=== PATIENT | female | born 1995 | race Hispanic/Latino ===

== ENCOUNTER 2018-03-24 03:45 | Emergency (ER) | payer OTHER, SELFPAY ==
--- NOTE | 2018-03-24 09:58 | RAD ---
PORTABLE CHEST: Date: 03/24/18 HISTORY: Cough. FINDINGS: Lungs are clear. Heart and mediastinum unremarkable. IMPRESSION: No acute process. POS: [facility]
--- NOTE | 2018-03-24 11:54 | EKG ---
Test Reason : Blood Pressure : / mmHG Vent. Rate : 090 BPM Atrial Rate : 090 BPM P-R Int : 154 ms QRS Dur : 080 ms QT Int : 356 ms P-R-T Axes : 027 029 003 degrees QTc Int : 435 ms Normal sinus rhythm Normal ECG T wave inversion III Confirmed by REYNA MEADE DO ([id number]), editor producer JAYSON MORRIS ([id number]) on 03/24/2018 11:53:56 AM Referred By: Confirmed By:REYNA MEADE DO
== END 2018-03-24 04:44 | disposition home or self-care (01) ==
LOC: ERS 03:45
DX: J06.9 Acute upper respiratory infection, unspecified (principal); F90.9 Attention-deficit hyperactivity disorder, unspecified type; F32.9 Major depressive disorder, single episode, unspecified
CPT/HCPCS: 71045; 93005

== ENCOUNTER 2018-04-26 21:35 | Emergency (ER) | payer OTHER, SELFPAY | END 2018-04-26 22:04 | disposition home or self-care (01) | LOC: ERS 21:35 | DX: H00.015 Hordeolum externum left lower eyelid (principal); F90.9 Attention-deficit hyperactivity disorder, unspecified type; F32.9 Major depressive disorder, single episode, unspecified | CPT/HCPCS: 99283 ==

== ENCOUNTER 2021-12-21 07:33 | Emergency (ER) | payer OTHER, SELFPAY | END 2021-12-21 10:38 | disposition home or self-care (01) | LOC: ERS 07:33 | DX: J06.9 Acute upper respiratory infection, unspecified (principal); Z20.822 Contact with and (suspected) exposure to COVID-19 | CPT/HCPCS: 99283; U0003; U0005 ==

== ENCOUNTER 2022-02-19 20:04 | Emergency (ER) | payer OTHER ==
[2022-02-19 20:26] LABS: Bacteria/HPF 2+ HPF (None Seen); Bilirubin Negative (Negative); Blood, Urine Trace (Negative); Clarity Turbid (Clear); Glucose, Urine (Dipstick) Normal (Negative); Ketone, Urine Negative (Negative); Leukocyte 500 Leu/uL (Negative); Nitrite Negative (Negative); Protein, Urine (Dipstick) 10 mg/dL (Neg-Trace); RBC/HPF 0-3 HPF (0-3); Specific Gravity, Urine 1.022 (1.002-1.036); Urobilinogen Normal mg/dL (Less than 2); WBC/HPF 21-50 HPF (0-3); pH, Urine 6.5 (5.0-9.0)
[2022-02-19 20:27] LABS: Pregnancy Test - Urine (BHCG) Negative (Negative); Pregu Control Background? CLEAR/WHITE (CLR/WHITE); Pregu Control Bar Appear? YES (CONTROL BAR); Specific Gravity 1.022 (1.002-1.036)
[2022-02-19 20:55] LABS: Hemoglobin 8.1 g/dL (12.0-16.0); Mean Corpuscular HGB CONC 27.3 g/dL (32.0-36.0); Mean Corpuscular Volume 62.4 fL (78.0-98.0); RBC Distribution Width 17.5 % (11.5-14.5); Red Blood Cell (RBC) Count 4.76 mill/uL (4.20-5.40); White Blood Cell (WBC) Count 8.3 thou/uL (4.8-10.8)
[2022-02-19 21:04] LABS: ALT (SGPT) 51 U/L (8-55); AST (SGOT) 24 U/L (5-34); Albumin 4.1 g/dL (3.5-5.0); Alkaline Phosphatase 88 U/L (40-110); Anion Gap 11 mmol/L (10-20); BUN (Urea Nitrogen) 11 mg/dL (7.0-18.7); Bilirubin, Total 0.3 mg/dL (0.2-1.2); Calc. Creatinine Clearance 0 mL/min (70-130); Calcium 9.7 mg/dL (7.8-10.44); Carbon Dioxide 27 mmol/L (22-29); Chloride 105 mmol/L (98-107); Estimated GFR 126; Globulin 2.8 g/dL (2.4-3.5); Glucose 87 mg/dL (70-105); Lipase 21 U/L (8-78); Potassium 3.9 mmol/L (3.5-5.1); Protein, Total 6.9 g/dL (6.0-8.3); Sodium 139 mmol/L (136-145)
[2022-02-19 21:35] LABS: #Basophils 0.1 thou/uL (0.0-0.2); #Eosinphils 0.2 thou/uL (0.0-0.7); #Lymphocytes 2.8 thou/uL (1.20-3.40); #Monocytes 0.7 thou/uL (0.11-0.59); #Neutrophils 4.6 thou/uL (1.40-6.50); %Basophils 0.8 % (0.0-1.0); %Eosinophils 2.7 % (0.0-10.0); %Lymphocytes 33.3 % (21.0-51.0); %Monocytes 8.5 % (0.0-10.0); %Neutrophils 54.8 % (42.0-75.0); Anisocytosis SLIGHT = 6-15 cells (100X) (0-5/hpf); Elliptocytes SLIGHT = 2-5 cells (100X) (0-1/hpf); MDiff Complete? YES; Mean Platelet Volume 6.2 fL (7.4-10.4); Microcytosis SLIGHT = 6-15 cells (100X) (0-5/hpf); Platelet Count 318 thou/uL (130-400); Platelet Morphology Comment Appears Adequate
== END 2022-02-19 21:20 | disposition home or self-care (01) ==
LOC: ERS 20:04
DX: K59.09 Other constipation (principal); D64.9 Anemia, unspecified; N39.0 Urinary tract infection, site not specified
CPT/HCPCS: 36415; 80053; 81003; 81015; 81025; 83690; 85025; 87086; 99284

== ENCOUNTER 2024-04-02 10:44 | Emergency (ER) | payer OTHER, SELFPAY ==
[~2024-04-02 10:44] MED LIST: Iopamidol-370 76% 500 ML MDV (1 ML CHARGE) ONE
[2024-04-02 11:23] LABS: #Basophils Less than 0.03 10x3/uL (0.0-0.2); %Basophils 0.2 % (0.0-1.0); %Eosinophils 0.4 % (0.0-10.0); %Lymphocytes 11.6 % (21.0-51.0); %Monocytes 6.3 % (0.0-10.0); %Neutrophils 81.2 % (42.0-75.0); Hematocrit 41.9 % (36.0-47.0); Hemoglobin 14.1 g/dL (12.0-16.0); Mean Corpuscular HGB CONC 33.7 g/dL (32.0-36.0); Mean Corpuscular Volume 77.2 fL (78.0-98.0); Mean Platelet Volume 10.7 fL (7.4-10.4); Platelet Count 204 10x3/uL (130-400); RBC Distribution Width 13.2 % (11.5-14.5); Red Blood Cell (RBC) Count 5.43 mill/uL (4.20-5.40)
[2024-04-02] MEDS ORDERED: Ketorolac Tromethamine 30 MG (1 mL) VIAL ONE (11:23)
[2024-04-02] MEDS ORDERED: Ondansetron PF 4 MG/2 ML Vial ONE ×2 (11:23→14:40)
[2024-04-02 11:43] LABS: ALT (SGPT) 27 U/L (8-55); AST (SGOT) 18 U/L (5-34); Albumin 3.6 g/dL (3.5-5.0); Alkaline Phosphatase 86 U/L (40-110); Anion Gap 12 mmol/L (10-20); BUN (Urea Nitrogen) 9 mg/dL (7.0-18.7); Bilirubin, Total 0.8 mg/dL (0.2-1.2); Calc. Creatinine Clearance 0 mL/min (70-130); Calcium 8.7 mg/dL (7.8-10.44); Carbon Dioxide 24 mmol/L (22-29); Chloride 104 mmol/L (98-107); Estimated GFR 126; Globulin 3.5 g/dL (2.4-3.5); Glucose 90 mg/dL (70-105); Lipase 13 U/L (8-78); Potassium 3.6 mmol/L (3.5-5.1); Protein, Total 7.1 g/dL (6.0-8.3); Sodium 136 mmol/L (136-145)
[2024-04-02 12:05] LABS: Pregnancy Test - Urine (BHCG) Negative (Negative); Pregu Control Background? CLEAR/WHITE (CLR/WHITE); Pregu Control Bar Appear? YES (CONTROL BAR)
[2024-04-02 12:07] LABS: Bacteria/HPF 3+ HPF (None Seen); Bilirubin Negative (Negative); Blood, Urine Negative (Negative); CAUTI Indications for Culture Pelvic or flank pain; Clarity Clear (Clear); Glucose, Urine (Dipstick) Normal (Negative); Ketone, Urine Negative (Negative); Leukocyte Negative Leu/uL (Negative); Nitrite Negative (Negative); Protein, Urine (Dipstick) 20 mg/dL (Neg-Trace); RBC/HPF None Seen HPF (0-3); Specific Gravity 1.025 (1.002-1.036); Specific Gravity, Urine 1.025 (1.002-1.036); WBC/HPF 0-3 HPF (0-3)
[2024-04-02 12:09] LABS: Urine Culture Reflex No No
[2024-04-02] MEDS ORDERED: Lidocaine Viscous Sol 2% 15 ml UD Cup ONE (14:40)
[2024-04-02] MEDS ORDERED: Famotidine/PF 20 mg/2ml Vial ONE (14:40)
[2024-04-02] MEDS ORDERED: Milk Of Magnesia 30 ML UDCUP ONE (14:40)
== END 2024-04-02 14:50 | disposition home or self-care (01) ==
LOC: ERS 10:44
DX: K29.70 Gastritis, unspecified, without bleeding (principal)
CPT/HCPCS: 36415; 74177; 80053; 81001; 81025; 83690; 85025; 96374; 96375; 96376; J1885; J2405; J3490; Q9967